=== PATIENT | male | born 1955 | race Caucasian/White ===

== ENCOUNTER 2016-07-08 11:23 | Outpatient (CLI) | payer BC ==
[2016-07-08 11:48] LABS: Prothrombin Time 21.6 SEC (12.0-14.7)
== END 2016-07-08 11:24 | disposition home or self-care (01) ==
LOC: NAV LAB 11:23
PROVIDERS: ATTEND Family Medicine
DX: Z51.81 Encounter for therapeutic drug level monitoring (principal); Z79.01 Long term (current) use of anticoagulants
CPT/HCPCS: 36415; 85610

== ENCOUNTER 2016-08-05 10:15 | Outpatient (CLI) | payer BC ==
[2016-08-05 11:19] LABS: Prothrombin Time 27.3 SEC (12.0-14.7)
== END 2016-08-05 10:16 | disposition home or self-care (01) ==
LOC: NAV LAB 10:15
PROVIDERS: ATTEND Family Medicine
DX: Z51.81 Encounter for therapeutic drug level monitoring (principal); Z79.01 Long term (current) use of anticoagulants
CPT/HCPCS: 36415; 85610

== ENCOUNTER 2016-09-02 10:43 | Outpatient (CLI) | payer BC ==
[2016-09-02 11:58] LABS: #Basophils 0.1 thou/uL (0.0-0.2); #Eosinphils 0.2 thou/uL (0.0-0.7); #Monocytes 0.5 thou/uL (0.11-0.59); #Neutrophils 4.5 thou/uL (1.40-6.50); %Basophils 0.9 % (0.0-1.0); %Eosinophils 2.8 % (0.0-10.0); %Lymphocytes 15.7 % (21.0-51.0); %Monocytes 7.7 % (0.0-10.0); Hematocrit 27.9 % (42.0-52.0); Mean Platelet Volume 6.2 fL (7.4-10.4); Red Blood Cell (RBC) Count 4.13 mill/uL (4.70-6.10); White Blood Cell (WBC) Count 6.2 thou/uL (4.8-10.8)
[2016-09-02 12:03] LABS: Prothrombin Time 28.6 SEC (12.0-14.7)
== END 2016-09-02 10:44 | disposition home or self-care (01) ==
LOC: NAV LAB 10:43
PROVIDERS: ATTEND Family Medicine
DX: D64.9 Anemia, unspecified (principal); Z79.01 Long term (current) use of anticoagulants
CPT/HCPCS: 85025; 85610

== ENCOUNTER 2016-10-07 10:23 | Outpatient (CLI) | payer BC ==
[2016-10-07 11:12] LABS: INR-International Normal Ratio 2.2
[2016-10-07 11:31] LABS: Follow-up Coag Comp? YES
== END 2016-10-07 10:24 | disposition home or self-care (01) ==
LOC: NAV LAB 10:23
PROVIDERS: ATTEND Family Medicine
DX: Z51.81 Encounter for therapeutic drug level monitoring (principal); Z79.01 Long term (current) use of anticoagulants
CPT/HCPCS: 36415; 85610

== ENCOUNTER 2016-11-18 11:35 | Outpatient (CLI) | payer BC ==
[2016-11-18 12:18] LABS: INR-International Normal Ratio 2.4; Prothrombin Time 26.6 SEC (12.0-14.7)
== END 2016-11-18 11:36 | disposition home or self-care (01) ==
LOC: NAV LAB 11:35
PROVIDERS: ATTEND Family Medicine
DX: Z51.81 Encounter for therapeutic drug level monitoring (principal); Z79.01 Long term (current) use of anticoagulants
CPT/HCPCS: 36415; 85610

== ENCOUNTER 2016-12-16 11:33 | Outpatient (CLI) | payer BC ==
[2016-12-16 11:57] LABS: INR-International Normal Ratio 3.2; Prothrombin Time 34.3 SEC (12.0-14.7)
== END 2016-12-16 11:34 | disposition home or self-care (01) ==
LOC: NAV LAB 11:33
PROVIDERS: ATTEND Family Medicine
DX: Z51.81 Encounter for therapeutic drug level monitoring (principal); Z79.01 Long term (current) use of anticoagulants
CPT/HCPCS: 36415; 85610

== ENCOUNTER 2017-01-17 10:32 | Outpatient (CLI) | payer BC ==
[2017-01-17 11:48] LABS: INR-International Normal Ratio 2.4; Prothrombin Time 27.4 SEC (12.0-14.7)
== END 2017-01-17 10:33 | disposition home or self-care (01) ==
LOC: NAV LAB 10:32
PROVIDERS: ATTEND Family Medicine
DX: Z51.81 Encounter for therapeutic drug level monitoring (principal); Z79.01 Long term (current) use of anticoagulants
CPT/HCPCS: 36415; 85610

== ENCOUNTER 2017-02-17 10:23 | Outpatient (CLI) | payer BC ==
[2017-02-17 10:51] LABS: INR-International Normal Ratio 2.1; Prothrombin Time 24.1 SEC (12.0-14.7)
== END 2017-02-17 10:24 | disposition home or self-care (01) ==
LOC: NAV LAB 10:23
PROVIDERS: ATTEND Family Medicine
DX: Z51.81 Encounter for therapeutic drug level monitoring (principal); Z79.01 Long term (current) use of anticoagulants
CPT/HCPCS: 36415; 85610

== ENCOUNTER 2017-12-25 17:49 | Outpatient (CLI) | payer BC ==
[2017-12-25 18:18] LABS: #Basophils 0.1 thou/uL (0.0-0.2); #Eosinphils 0.2 thou/uL (0.0-0.7); #Lymphocytes 1.4 thou/uL (1.20-3.40); #Monocytes 0.6 thou/uL (0.11-0.59); #Neutrophils 5.2 thou/uL (1.40-6.50); %Eosinophils 2.7 % (0.0-10.0); %Lymphocytes 18.2 % (21.0-51.0); %Monocytes 8.6 % (0.0-10.0); %Neutrophils 69.5 % (42.0-75.0); Hemoglobin 13.1 g/dL (14.0-18.0); Mean Corpuscular Hemoglobin 28.3 pg (27.0-31.0); Mean Corpuscular Volume 88.5 fL (78.0-98.0); Mean Platelet Volume 6.3 fL (7.4-10.4); Platelet Count 325 thou/uL (130-400); RBC Distribution Width 12.7 % (11.5-14.5); Red Blood Cell (RBC) Count 4.63 mill/uL (4.70-6.10); White Blood Cell (WBC) Count 7.5 thou/uL (4.8-10.8)
[2017-12-25 18:44] LABS: ALT (SGPT) 18 U/L (8-55); Alkaline Phosphatase 71 U/L (40-150); Anion Gap 19 mmol/L (10-20); BUN (Urea Nitrogen) 24 mg/dL (8.4-25.7); Bilirubin, Total 0.2 mg/dL (0.2-1.2); Calc. Creatinine Clearance 0 mL/min (70-130); Calcium 9.1 mg/dL (7.8-10.44); Carbon Dioxide 17 mmol/L (23-31); Estimated GFR-MDRD 47; Globulin 4.1 g/dL (2.4-3.5); Glucose 111 mg/dL (80-115); Lipase 11 U/L (8-78); Protein, Total 8.1 g/dL (5.8-8.1)
[2017-12-25 18:47] LABS: Potassium 5.1 mmol/L (3.5-5.1)
[2017-12-25 18:48] LABS: AST (SGOT) 28 U/L (5-34); Chloride 111 mmol/L (98-107); Sodium 141 mmol/L (136-145)
== END 2017-12-25 17:50 | disposition home or self-care (01) ==
LOC: NAV LAB 17:49
PROVIDERS: ATTEND Family Medicine
DX: R10.11 Right upper quadrant pain (principal)
CPT/HCPCS: 82150; 83690

== ENCOUNTER 2018-01-14 13:16 | Emergency (ER) | payer BC ==
[2018-01-14 14:23] LABS: #Basophils 0.1 thou/uL (0.0-0.2); #Eosinphils 0.2 thou/uL (0.0-0.7); #Lymphocytes 1.3 thou/uL (1.20-3.40); #Monocytes 0.8 thou/uL (0.11-0.59); %Basophils 0.7 % (0.0-1.0); %Eosinophils 1.8 % (0.0-10.0); %Lymphocytes 14.2 % (21.0-51.0); %Monocytes 8.1 % (0.0-10.0); %Neutrophils 75.3 % (42.0-75.0); Hemoglobin 12.7 g/dL (14.0-18.0); Mean Corpuscular HGB CONC 30.3 g/dL (32.0-36.0); Mean Corpuscular Hemoglobin 26.7 pg (27.0-31.0); Mean Platelet Volume 6.5 fL (7.4-10.4); Platelet Count 332 thou/uL (130-400); RBC Distribution Width 13.6 % (11.5-14.5); Red Blood Cell (RBC) Count 4.76 mill/uL (4.70-6.10); White Blood Cell (WBC) Count 9.3 thou/uL (4.8-10.8)
[2018-01-14] MEDS ORDERED: Sodium Chloride 0.9% 1,000 ML ONE (14:23)
[2018-01-14 14:35] LABS: ALT (SGPT) 18 U/L (8-55); AST (SGOT) 19 U/L (5-34); Albumin 4.1 g/dL (3.4-4.8); Alkaline Phosphatase 79 U/L (40-150); Anion Gap 17 mmol/L (10-20); BUN (Urea Nitrogen) 30 mg/dL (8.4-25.7); Bilirubin, Total 0.3 mg/dL (0.2-1.2); Calc. Creatinine Clearance 0 mL/min (70-130); Calcium 9.6 mg/dL (7.8-10.44); Carbon Dioxide 16 mmol/L (23-31); Chloride 105 mmol/L (98-107); Estimated GFR-MDRD 23; Globulin 3.5 g/dL (2.4-3.5); Glucose 117 mg/dL (80-115); Lipase 26 U/L (8-78); Potassium 4.6 mmol/L (3.5-5.1); Protein, Total 7.6 g/dL (5.8-8.1); Sodium 133 mmol/L (136-145)
[2018-01-14 14:36] LABS: INR-International Normal Ratio 3.2; PTT 59.1 SEC (22.9-36.1); Prothrombin Time 32.4 SEC (12.0-14.7)
[2018-01-14] MEDS ORDERED: Piperacillin/Tazobactam 3.375 GM VIAL ONE (15:23)
[2018-01-14 15:37] LABS: CKMB 1.3 ng/mL (0-6.6); Troponin I Less than 0.010 ng/mL (< 0.028)
--- NOTE | 2018-01-14 15:38 | RAD ---
CHEST 1 VIEW: HISTORY: Chest pain. COMPARISON: None. FINDINGS: Heart size is enlarged. The left costophrenic sulcus is not well seen, although likely sequelae of i ncreased mediastinal fat. No acute osseous abnormality. IMPRESSION: Lung hypoinflation and cardiomegaly. POS: [facility]
--- NOTE | 2018-01-14 15:39 | CT ---
ABDOMEN AND PELVIC CT SCAN WITH IV CONTRAST: Date: 01/14/18 HISTORY: 62-year-old male with diffuse abdominal pain, more towards the midline, lower abdomen, and to the rig ht upper quadrant. FINDINGS: Significant motion artifact is noted in the upper abdomen and chest. This lowers the sensitivity of t his study. There appears to be a trace amount of ascitic fluid around the liver and in the lower abdo men and pelvis. Rounded opacity in the dependent portion of the gallbladder suspicious for small gall stone. Some fatty changes throughout the pancreas. Spleen and adrenal glands are unremarkable. Small hiatal hernia. No renal calculus or acute obstruction. Probable small, 1.3 cm, diameter cyst of th e right kidney. Small linear nonspecific opacity which appears to be within the cecum and probably bazzi s been ingested. No CT evidence for acute appendicitis. Small, bilateral fat-containing hernias. Lumb ar spine spondylosis. IMPRESSION: Trace amount of ascites in the abdomen and pelvis. Probable small gallstone. Fatty changes in the ozuna creas. No CT evidence for acute appendicitis. No renal calculus or obstruction. Nonspecific linear opacity which appears to be in the cecum and presumably has been ingested. POS: [facility]
== END 2018-01-14 16:37 | disposition short-term general hospital (02) ==
LOC: NAV ERS 13:16
DX: K80.20 Calculus of gallbladder without cholecystitis without obstruction (principal); N17.9 Acute kidney failure, unspecified; D68.2 Hereditary deficiency of other clotting factors; M19.90 Unspecified osteoarthritis, unspecified site; J42 Unspecified chronic bronchitis; Z86.718 Personal history of other venous thrombosis and embolism; Z79.01 Long term (current) use of anticoagulants; Z79.899 Other long term (current) drug therapy
CPT/HCPCS: 36415; 71045; 74176; 80053; 82553; 83605; 83690; 84484; 85025; 85610; 85730; 87040; 93005; 94760; 96361; 96365; J2543; J7050

== ENCOUNTER 2018-03-19 19:19 | Emergency (ER) | payer BC ==
[2018-03-19] MEDS ORDERED: Sodium Chloride 0.9% 1,000 ML ONE (19:44)
[2018-03-19 20:15] LABS: #Basophils 0.1 thou/uL (0.0-0.2); #Eosinphils 0.1 thou/uL (0.0-0.7); #Monocytes 0.5 thou/uL (0.11-0.59); #Neutrophils 6.5 thou/uL (1.40-6.50); %Basophils 0.7 % (0.0-1.0); %Eosinophils 1.3 % (0.0-10.0); %Lymphocytes 12.2 % (21.0-51.0); %Neutrophils 79.8 % (42.0-75.0); Hemoglobin 11.3 g/dL (14.0-18.0); Mean Corpuscular HGB CONC 30.4 g/dL (32.0-36.0); Mean Corpuscular Hemoglobin 26.9 pg (27.0-31.0); Mean Corpuscular Volume 88.6 fL (78.0-98.0); Mean Platelet Volume 6.8 fL (7.4-10.4); Platelet Count 382 thou/uL (130-400); Red Blood Cell (RBC) Count 4.21 mill/uL (4.70-6.10); White Blood Cell (WBC) Count 8.1 thou/uL (4.8-10.8)
[2018-03-19 20:28] LABS: ALT (SGPT) 12 U/L (8-55); AST (SGOT) 16 U/L (5-34); Albumin 3.4 g/dL (3.4-4.8); Alkaline Phosphatase 85 U/L (40-150); Anion Gap 22 mmol/L (10-20); BUN (Urea Nitrogen) 9 mg/dL (8.4-25.7); Bilirubin, Total 0.4 mg/dL (0.2-1.2); Calc. Creatinine Clearance 0 mL/min (70-130); Calcium 9.5 mg/dL (7.8-10.44); Carbon Dioxide 19 mmol/L (23-31); Chloride 98 mmol/L (98-107); Estimated GFR-MDRD 57; Globulin 4.3 g/dL (2.4-3.5); Glucose 100 mg/dL (80-115); Potassium 3.2 mmol/L (3.5-5.1); Protein, Total 7.7 g/dL (5.8-8.1); Sodium 136 mmol/L (136-145)
[2018-03-19 20:31] LABS: CKMB 1.1 ng/mL (0-6.6); Troponin I 0.021 ng/mL (< 0.028)
[2018-03-19] MEDS ORDERED: Potassium Chloride 20 MEQ TAB ONE (20:41)
[2018-03-19 20:46] LABS: PTT Greater than 250.0 SEC (22.9-36.1); Prothrombin Time Greater than 150.0 SEC (12.0-14.7)
== END 2018-03-19 21:31 | disposition short-term general hospital (02) ==
LOC: NAV ERS 19:19
DX: D68.32 Hemorrhagic disorder due to extrinsic circulating anticoagulants (principal); R31.0 Gross hematuria; I10 Essential (primary) hypertension; J42 Unspecified chronic bronchitis; M19.90 Unspecified osteoarthritis, unspecified site; D68.2 Hereditary deficiency of other clotting factors; Z87.891 Personal history of nicotine dependence; Z86.718 Personal history of other venous thrombosis and embolism; Z79.01 Long term (current) use of anticoagulants; Z79.899 Other long term (current) drug therapy
CPT/HCPCS: 80053; 82553; 83880; 84484; 85025; 85610; 85730; 93005; 94760; 96360; J7050

== ENCOUNTER 2018-04-03 14:31 | Emergency (ER) | payer BC ==
[2018-04-03 15:59] LABS: INR-International Normal Ratio 2.9; Prothrombin Time 30.2 SEC (12.0-14.7)
[2018-04-03 16:07] LABS: ALT (SGPT) 37 U/L (8-55); AST (SGOT) 49 U/L (5-34); Albumin 3.8 g/dL (3.4-4.8); Alkaline Phosphatase 87 U/L (40-150); Anion Gap 21 mmol/L (10-20); BUN (Urea Nitrogen) 12 mg/dL (8.4-25.7); Bilirubin, Total 0.7 mg/dL (0.2-1.2); Calc. Creatinine Clearance 0 mL/min (70-130); Calcium 10.2 mg/dL (7.8-10.44); Carbon Dioxide 23 mmol/L (23-31); Chloride 94 mmol/L (98-107); Estimated GFR-MDRD 52; Globulin 3.9 g/dL (2.4-3.5); Glucose 133 mg/dL (80-115); Protein, Total 7.7 g/dL (5.8-8.1); Sodium 135 mmol/L (136-145)
[2018-04-03 16:10] LABS: Potassium 2.5 mmol/L (3.5-5.1)
[2018-04-03 16:12] LABS: #Basophils 0.1 thou/uL (0.0-0.2); #Eosinphils 0.1 thou/uL (0.0-0.7); #Lymphocytes 1.1 thou/uL (1.20-3.40); #Monocytes 0.5 thou/uL (0.11-0.59); #Neutrophils 6.1 thou/uL (1.40-6.50); %Eosinophils 1.6 % (0.0-10.0); %Lymphocytes 14.3 % (21.0-51.0); %Monocytes 6.4 % (0.0-10.0); %Neutrophils 76.7 % (42.0-75.0); Hemoglobin 12.5 g/dL (14.0-18.0); Mean Corpuscular Hemoglobin 27.1 pg (27.0-31.0); Mean Corpuscular Volume 87.6 fL (78.0-98.0); Mean Platelet Volume 6.4 fL (7.4-10.4); Platelet Count 413 thou/uL (130-400); RBC Distribution Width 17.2 % (11.5-14.5); Red Blood Cell (RBC) Count 4.62 mill/uL (4.70-6.10); White Blood Cell (WBC) Count 7.9 thou/uL (4.8-10.8)
[2018-04-03] MEDS ORDERED: Potassium Chloride 20 MEQ TAB ONE (16:44)
[2018-04-03] MEDS ORDERED: Sodium Chloride 0.9% 1,000 ML ONE (16:49)
[2018-04-03] MEDS ORDERED: Ondansetron HCl/PF 4 MG/2 ML Vial ONE (16:49)
--- NOTE | 2018-04-03 17:31 | CT ---
CT OF BRAIN PERFORMED WITHOUT CONTRAST ENHANCEMENT: 04/03/18 HISTORY: Syncope, lightheadedness, dizziness. There is generalized ventricular and sulcal prominence. There is no signs of intracerebral hemorrhage or extra-axial fluid collections. Mastoid air cells and visualized sinuses are clear. IMPRESSION: No acute intracranial abnormalities. POS: [facility]
[2018-04-03] MEDS ORDERED: D5 1/2 NS w/20 mEq KCL 1,000 ML ONE (18:24)
== END 2018-04-03 18:50 | disposition short-term general hospital (02) ==
LOC: NAV ERS 14:31
DX: I95.1 Orthostatic hypotension (principal); R11.2 Nausea with vomiting, unspecified; I10 Essential (primary) hypertension; Z87.891 Personal history of nicotine dependence; Z79.899 Other long term (current) drug therapy; Z79.01 Long term (current) use of anticoagulants
CPT/HCPCS: 70450; 80053; 83690; 85025; 85610; 93005; 96361; 96365; 96375; J2405; J7050

== ENCOUNTER 2018-04-17 12:13 | Emergency (ER) | payer BC ==
[2018-04-17 13:08] LABS: #Basophils 0.1 thou/uL (0.0-0.2); #Eosinphils 0.1 thou/uL (0.0-0.7); #Lymphocytes 0.5 thou/uL (1.20-3.40); #Monocytes 0.6 thou/uL (0.11-0.59); #Neutrophils 3.7 thou/uL (1.40-6.50); %Basophils 2.8 % (0.0-1.0); %Eosinophils 2.8 % (0.0-10.0); %Lymphocytes 9.4 % (21.0-51.0); %Monocytes 11.1 % (0.0-10.0); %Neutrophils 73.9 % (42.0-75.0); Hemoglobin 9.4 g/dL (14.0-18.0); Mean Corpuscular HGB CONC 30.8 g/dL (32.0-36.0); Mean Corpuscular Hemoglobin 27.6 pg (27.0-31.0); Mean Corpuscular Volume 89.5 fL (78.0-98.0); Platelet Count 211 thou/uL (130-400); RBC Distribution Width 18.1 % (11.5-14.5); Red Blood Cell (RBC) Count 3.42 mill/uL (4.70-6.10)
[2018-04-17 13:15] LABS: INR-International Normal Ratio 1.2; Prothrombin Time 15.1 SEC (12.0-14.7)
[2018-04-17 13:16] LABS: PTT 35.8 SEC (22.9-36.1)
[2018-04-17 13:20] LABS: Anion Gap 13 mmol/L (10-20); BUN (Urea Nitrogen) 9 mg/dL (8.4-25.7); Calc. Creatinine Clearance 0 mL/min (70-130); Calcium 8.8 mg/dL (7.8-10.44); Carbon Dioxide 24 mmol/L (23-31); Chloride 104 mmol/L (98-107); Estimated GFR-MDRD 86; Glucose 111 mg/dL (80-115); Potassium 3.9 mmol/L (3.5-5.1); Sodium 137 mmol/L (136-145)
[2018-04-17] MEDS ORDERED: Enoxaparin Sodium 100 MG/ML SYRINGE ONE (13:31)
== END 2018-04-17 13:39 | disposition short-term general hospital (02) ==
LOC: NAV ERS 12:13
DX: M79.89 Other specified soft tissue disorders (principal); I10 Essential (primary) hypertension; Z87.891 Personal history of nicotine dependence; Z79.01 Long term (current) use of anticoagulants; Z79.899 Other long term (current) drug therapy
CPT/HCPCS: 80048; 85025; 85610; 85730; 93005; 96372; J1650